=== PATIENT | male | born 1965 | race Asian ===

== ENCOUNTER 2023-02-17 06:38 | Outpatient (CLI) | payer OTHER ==
--- NOTE | 2023-02-17 23:09 | Ultrasound Report ---
PROCEDURE: Abdomen Complete INDICATIONS: RIGHT LOWER QUAD ABD PAIN TECHNIQUE: Real-time scanning was performed of the abdominal and retroperitoneal organs, with image documentatio n. COMPARISON: None. FINDINGS: Liver: Liver mildly enlarged measuring 19.0 cm and homogeneous in echotexture. There is increased e chogenicity. There is a hypoechoic mass at the lateral aspect of the right liver lobe with internal v ascularity measuring 1.9 x 1.5 x 1.5 cm. Gallbladder: Gallbladder is contracted. There is echogenic 4 mm foci along the gallbladder wall, whic h may represent adherent sludge versus polyp. No gallbladder wall thickening or pericholecystic fluid . Biliary ducts: Intrahepatic bile ducts are non-dilated. Extrahepatic bile duct caliber measures 4.5 mm. Normal is 6-7 mm or less in diameter, or 10 mm or less post-cholecystectomy. Pancreas: Not well visualized due to overlying bowel gas. Spleen: Spleen is normal in size and homogeneous in echotexture. Kidneys: Kidneys are normal in size and echotexture. Right kidney measures 11.8 cm long; left kidne y measures 12.5 cm long. No hydronephrosis or nephrolithiasis. No solid masses. No complex renal cy stic lesions which require follow-up. Aorta: Visualized aorta is normal in caliber at less than 3 cm. Iliacs: Proximal common iliac arteries are normal in caliber at less than 2.5 cm. IVC: Intrahepatic inferior vena cava is patent. Miscellaneous: No free abdominal fluid. In area of patient clinical pain approximately 10 to 12 cm t o the right of umbilicus, no sonographic abnormality is visualized. IMPRESSION: 1. Mildly enlarged liver measuring up to 19.0 cm. Increased hepatic echogenicity may reflect hepatic steatosis. Recommend clinical correlation. 2. Right hepatic hypoechoic and vascular lesion measuring 1.9 cm is indeterminate. May represent a he mangioma. Recommend further evaluation with multiphase liver protocol contrast-enhanced CT or abdomin al MRI. 4. Echogenic 4 mm focus along the gallbladder wall, may represent adherent sludge versus polyp. Reviewed by: Marly Crowder MD on 02/17/2023 11:07 PM PST Approved by: Marly Crowder MD on 02/17/2023 11:07 PM PST Station ID: [id number]
== END 2023-02-17 06:39 | disposition home or self-care (01) ==
LOC: MERGE 06:38 → DI 06:38
PROVIDERS: ATTEND Physician Assistant Medical
DX: R16.0 Hepatomegaly, not elsewhere classified (principal); K76.9 Liver disease, unspecified; R10.31 Right lower quadrant pain